=== PATIENT | female | born 1945 | race Caucasian/White ===

== ENCOUNTER 2022-04-17 15:43 | Inpatient (IN) | payer MEDICARE, OTHER ==
[~2022-04-17] VITALS: Ht 152.4 cm; Wt 45.5 kg
[2022-04-17 16:18] LABS: BASOPHILS ABSOLUTE AUTO 0.04 K/mm3 (0.00-0.23); BASOPHILS PERCENT AUTO 0 % (0-2); EOSINOPHILS ABSOLUTE AUTO 0.02 K/mm3 (0.00-0.68); EOSINOPHILS PERCENT AUTO 0 % (0-6); Hematocrit 41.4 % (33.0-51.0); Hemoglobin 13.9 g/dL (11.5-16.0); IMMATURE GRAN ABSOLUTE AUTO 0.02 K/mm3 (0.00-0.10); IMMATURE GRAN PERCENT AUTO 0 % (0-1); LYMPHOCYTES ABSOLUTE AUTO 2.54 K/mm3 (0.84-5.20); LYMPHOCYTES PERCENT AUTO 25 % (21-46); MONOCYTES ABSOLUTE AUTO 0.84 K/mm3 (0.16-1.47); MONOCYTES PERCENT AUTO 8 % (4-13); Mean Corpuscular HGB 30.8 pg (26.0-34.0); Mean Corpuscular HGB Conc 33.6 g/dL (31.5-36.5); Mean Corpuscular Volume 92 fL (80-100); Mean Platelet Volume 10.4 fL (9.1-12.4); NEUTROPHILS ABSOLUTE AUTO 6.77 K/mm3 (1.96-9.15); NEUTROPHILS PERCENT AUTO 66 % (41-73); Platelet Count 322 K/mm3 (150-400); RDW Coefficient Variation 13.3 % (11.7-14.2); RDW Standard Deviation 44.9 fL (35.1-46.3); Red Blood Cell Count 4.51 M/mm3 (3.80-5.20); White Blood Cell Count 10.23 K/mm3 (4.00-11.30)
[2022-04-17 16:49] LABS: Albumin, Blood 3.7 g/dL (3.4-5.0); Albumin/Globulin Ratio 1.1 (0.8-1.8); Bilirubin, Total 0.4 mg/dL (0.1-1.0); Bun/Creatinine Ratio 21.8 (12.0-20.0); Calcium, Blood 8.9 mg/dL (8.5-10.1); Creatinine, Blood 0.82 mg/dL (0.40-1.00); Globulin, Blood 3.3 g/dL (2.2-4.0); Potassium, Blood 3.4 mmol/L (3.5-5.5)
[2022-04-18 06:01] LABS: Bun/Creatinine Ratio 15.3 (12.0-20.0); Calcium, Blood 8.4 mg/dL (8.5-10.1); Creatinine, Blood 0.72 mg/dL (0.40-1.00); Potassium, Blood 3.9 mmol/L (3.5-5.5)
--- NOTE | 2022-04-18 06:03 | NUR ---
SHIFT SUMMARY PT A&OX3, HAD TROUBLE REMEMBERING WHAT TOWN WE'RE IN. PLEASANT AND COOPERATIVE WITH CARE. PT REQUIRED PAIN COVERAGE ONCE. NPO SINCE MIDNIGHT. CALL LIGHT WITHIN REACH.
--- NOTE | 2022-04-18 14:23 | NUR ---
04/18/22 1423 Paige Fabian SUGGS CATHETER IN SITU
--- NOTE | 2022-04-18 16:02 | NUR ---
SHIFT SUMMARY PT A&O2/FAMILY, VSS/3LNC. S/P L HIP NAILING, AQUACEL CDI, TEDS/PAS' ON. ARABELLA PO SIPS/CHIPS. IV RED INFUSING LR @ 125 MLS/HR. SUGGS PATENT & DRAINING YELLOW URINE, STAT LOCK ON, OFF FLOOR. PAIN TREATED W/25-50 FENT PRN. WILL REPORT TO ONCOMING NOC MARIZOL.
[2022-04-19 05:01] LABS: BASOPHILS ABSOLUTE AUTO 0.01 K/mm3 (0.00-0.23); BASOPHILS PERCENT AUTO 0 % (0-2); EOSINOPHILS PERCENT AUTO 0 % (0-6); Hematocrit 29.9 % (33.0-51.0); Hemoglobin 9.8 g/dL (11.5-16.0); IMMATURE GRAN ABSOLUTE AUTO 0.02 K/mm3 (0.00-0.10); IMMATURE GRAN PERCENT AUTO 0 % (0-1); LYMPHOCYTES ABSOLUTE AUTO 1.17 K/mm3 (0.84-5.20); LYMPHOCYTES PERCENT AUTO 14 % (21-46); MONOCYTES ABSOLUTE AUTO 1.24 K/mm3 (0.16-1.47); MONOCYTES PERCENT AUTO 14 % (4-13); Mean Corpuscular HGB 31.4 pg (26.0-34.0); Mean Corpuscular HGB Conc 32.8 g/dL (31.5-36.5); Mean Corpuscular Volume 96 fL (80-100); Mean Platelet Volume 10.6 fL (9.1-12.4); NEUTROPHILS ABSOLUTE AUTO 6.25 K/mm3 (1.96-9.15); NEUTROPHILS PERCENT AUTO 72 % (41-73); Platelet Count 208 K/mm3 (150-400); RDW Coefficient Variation 13.4 % (11.7-14.2); RDW Standard Deviation 47.9 fL (35.1-46.3); Red Blood Cell Count 3.12 M/mm3 (3.80-5.20); White Blood Cell Count 8.69 K/mm3 (4.00-11.30)
[2022-04-19 05:24] LABS: Calcium, Blood 8.1 mg/dL (8.5-10.1); Creatinine, Blood 0.75 mg/dL (0.40-1.00)
--- NOTE | 2022-04-19 05:31 | NUR ---
SHIFT SUMMARY PT A&OX 2-3, PLEASANT AND COOPERATIVE WITH CARE. MEDICATED FOR PAIN ONCE DURING SHIFT. TAKING SMALL SIPS OF WATER BUT COUGHS EACH TIME, WILL RELAY TO DAYSHIFT FOR POSSIBLE SWALLOW EVAL NEED. SUGGS IN PACE AND DRAINING TO GRAVITY, YELLOW/CLEAR. AQUACEL X2 C/D/I. CALL LIGHT WITHIN REACH.
--- NOTE | 2022-04-19 08:00 | NUR ---
PATIENT KEPT NPO TO HAVE SPEECH THERAPY EVAL D/T PATIENT COUGHING AND CHOKING ON WATER.
--- NOTE | 2022-04-19 17:41 | NUR ---
SHIFT SUMMARY POD 1 LEFT HIP GAMMA NAIL, X2 AQUACELS C/D/I, WBAT. PATIENT WORKED WITH PT & OT THIS SHIFT AND DID WELL, 1-2 P ASSIST TO CHAIR/BSC. SUGGS IN PLACE, DRAINING CLEAR YELLOW URINE. PATIENT A&O X2-3, SAYS THINGS OUT OF CONTEXT FREQUENTLY/RANDOMLY. PLEASANT & COOPERATIVE W/ STAFF. BED ALARM/TAB ALARM IN [place] FOR SAFETY. CALL LIGHT IN REACH, USED APPROPRIATLY THIS SHIFT. WILL REPORT TO IAM FONTANA AT 1900.
--- NOTE | 2022-04-20 04:58 | NUR ---
POD2 FOR A LEFT HIP NAILING. AQUACEL DRESSING ARE INTACT, SOME SHADOWING NOTED. SENSATION AND CIRCULATION REMAINS INTACT IN THE LLE. VSS. PT APPEARS TO HAVE IMMENSE PAIN WHEN MOVING HER LLE, MEDICATED WITH TYLENOL AND ULTRAM. THE PT SLEPT ON AND OFF T/O THE NIGHT DUE TO PAIN. REPOSITIONED TOLLERATED AND UTILIZED COLD THERAPY. PT HAS REMAINED NPO T/O THE NIGHT EXCEPT FOR CRUSHED MEDS IN [place]PL[place]CE. PLAN FOR SPEECH TO FOLLOW THIS PT AND PERFORM A BARRIUM SWALLOW TEST. CONFUSION NOTED T/O THE NIGHT, PT REDIRECTABLE AND PLEASENT TO INTERACT WITH. NO IMPULSIVENESS NOTED, BUT TAB ALARM REMAINED IN PLACE FOR SAFETY. PLAN FOR PT TO WORK WITH PT/OT AND D/C TO SNF OR HOME DEPENDING ON PT NEEDS. THE PATIENT IS CURRENTLY SLEEPING, IN NO DISTRESS. CALL LIGHT IN REACH, TAB ALARM ON.
[2022-04-20 14:27] LABS: SARS-Cov-2 (COVID-19) PCR, MMC NEGATIVE (NEGATIVE)
--- NOTE | 2022-04-20 16:22 | NUR ---
DISCHARGE PATIENT IS POD 2 FOR LEFT HIP GAMMA NAIL. X2 AQUACELS IN PLACE, ONE CHANGED THIS SHIFT D/T MODERATE DRAINAGE. PATIENT DOING WELL WITH PT & OT. PAIN MANAGED WELL PER EMAR. EATING & DRINNKING WELL W/ PUREE FOODS & NECTAR THICK LIQUIDS. REPORT CALLED TO RN AT [facility]. ESCORTED OUT VIA W/C WITH TRANSPORTER.
--- NOTE | 2022-04-20 17:06 | NUR ---
[facility] FROM [facility] RETURN[facility] CALL, REPORT GIVEN.
== END 2022-04-20 16:23 | DRG 482 ==
LOC: ER 15:43 → SURS 18:00
PROVIDERS: Internal Medicine; Nurse Practitioner Acute Care; Orthopaedic Surgery; Student in an Organized Health Care Education/Training Program; ADMIT Internal Medicine
PROC: 0QS734Z Reposition Left Upper Femur with Internal Fixation Device, Percutaneous Approach (ICD-10-PCS; principal; 2022-04-18 13:30)
DX: S72.145A Nondisplaced intertrochanteric fracture of left femur, initial encounter for closed fracture (principal); E03.9 Hypothyroidism, unspecified; K21.9 Gastro-esophageal reflux disease without esophagitis; M81.0 Age-related osteoporosis without current pathological fracture; W18.30XA Fall on same level, unspecified, initial encounter; F03.90 Unspecified dementia, unspecified severity, without behavioral disturbance, psychotic disturbance, mood disturbance, and anxiety; Z66 Do not resuscitate; Z20.822 Contact with and (suspected) exposure to COVID-19; R41.0 Disorientation, unspecified; E87.6 Hypokalemia
CPT/HCPCS: 36415; 73502; 73700; 80048; 80053; 82947; 84443; 84484; 85025; 92526; 92610; 93005; 93010; 97110; 97162; 97166; 97530; 97535; A9270; C1713; C1769; J0690; J1100; J1170; J2405; J2704; J2710; J2795; J3010; J7030; J7040; J7120; U0004

== ENCOUNTER 2024-03-11 16:44 | Inpatient (IN) | payer OTHER ==
[~2024-03-11] VITALS: Ht 149.9 cm; Wt 49.9 kg
[2024-03-11] MEDS ORDERED: Ondansetron HCl 2 MG / ML 2ML Vial IV PRN (18:20)
[2024-03-11] MEDS ORDERED: OxyCODONE HCL 5 MG TAB PO PRN (18:20)
[2024-03-11] MEDS ORDERED: FentaNYL Citrate 50 MCG/ML 2 ML Injection IV PRN (18:25)
[2024-03-11] MEDS ORDERED: Acetaminophen 325 MG TABLET PO PRN (18:25)
[2024-03-11 18:33] LABS: BASOPHILS ABSOLUTE AUTO 0.03 K/mm3 (0.00-0.23); BASOPHILS PERCENT AUTO 0 % (0-2); EOSINOPHILS ABSOLUTE AUTO 0.03 K/mm3 (0.00-0.68); EOSINOPHILS PERCENT AUTO 0 % (0-6); IMMATURE GRAN ABSOLUTE AUTO 0.04 K/mm3 (0.00-0.10); IMMATURE GRAN PERCENT AUTO 0 % (0-1); LYMPHOCYTES ABSOLUTE AUTO 1.16 K/mm3 (0.84-5.20); LYMPHOCYTES PERCENT AUTO 8 % (21-46); MONOCYTES ABSOLUTE AUTO 0.66 K/mm3 (0.16-1.47); MONOCYTES PERCENT AUTO 5 % (4-13); Mean Corpuscular HGB 30.8 pg (26.0-34.0); Mean Corpuscular HGB Conc 33.3 g/dL (31.5-36.5); Mean Corpuscular Volume 93 fL (80-100); Mean Platelet Volume 9.9 fL (9.1-12.4); NEUTROPHILS ABSOLUTE AUTO 11.86 K/mm3 (1.96-9.15); NEUTROPHILS PERCENT AUTO 86 % (41-73); Platelet Count 322 K/mm3 (150-400); RDW Coefficient Variation 12.5 % (11.7-14.2); RDW Standard Deviation 42.8 fL (35.1-46.3); Red Blood Cell Count 4.54 M/mm3 (3.80-5.20); White Blood Cell Count 13.78 K/mm3 (4.00-11.30)
[2024-03-11 19:06] LABS: Albumin, Blood 3.3 g/dL (3.4-5.0); Albumin/Globulin Ratio 0.9 (0.8-1.8); Bilirubin, Total 0.4 mg/dL (0.1-1.0); Bun/Creatinine Ratio 11.5 (12.0-20.0); Calcium, Blood 8.9 mg/dL (8.5-10.1); Creatinine, Blood 0.78 mg/dL (0.40-1.00); Globulin, Blood 3.6 g/dL (2.2-4.0); Potassium, Blood 4.2 mmol/L (3.5-5.5); Total Protein, Blood 6.9 g/dL (6.4-8.2)
[2024-03-11] MEDS ORDERED: LEVSOD75 PO (20:09)
[2024-03-11] MEDS ORDERED: ESCI10 PO (20:09)
[2024-03-11 20:38] VITALS: BP 129/70
[2024-03-11] MEDS ORDERED: Sennosides 8.6 MG Tab PO SCH (21:00)
[2024-03-11] MEDS ORDERED: FLU VACC TS2024-25(6MOS UP)/PF 45 MCG/0.5 ML SYRINGE IM ONE (21:00)
[2024-03-11 22:33] LABS: Source, Urine Foley catheter
[2024-03-11 22:36] LABS: Bilirubin, Urine Neg (Neg); Blood, Urine Neg (Neg); Glucose Qualitative, Urine Neg (Neg); Ketones, Urine Neg (Neg); Leukocyte Esterase, Urine Neg (Neg); Nitrite, Urine Neg (Neg); Protein, Urine Neg (Neg); Specific Gravity, Urine 1.015 (1.003-1.022); Urobilinogen, Urine NORM (Normal)
[2024-03-11 22:42] LABS: Appearance, Urine Clear (Clear); Color, Urine Yellow (P-Yellow)
[2024-03-11] MEDS ORDERED: NS 1,000 ML IV SCH (23:30)
[2024-03-12] VITALS (16 sets, daily range): BP systolic 113–164; BP diastolic 64–124
[2024-03-12 05:06] LABS: Hemoglobin 12.3 g/dL (11.5-16.0); Mean Corpuscular HGB 30.8 pg (26.0-34.0); Mean Corpuscular HGB Conc 33.2 g/dL (31.5-36.5); Mean Corpuscular Volume 93 fL (80-100); Mean Platelet Volume 10.4 fL (9.1-12.4); Platelet Count 314 K/mm3 (150-400); RDW Coefficient Variation 12.6 % (11.7-14.2); RDW Standard Deviation 43.1 fL (35.1-46.3); White Blood Cell Count 10.41 K/mm3 (4.00-11.30)
[2024-03-12 05:36] LABS: Calcium, Blood 8.4 mg/dL (8.5-10.1); Creatinine, Blood 0.67 mg/dL (0.40-1.00); Potassium, Blood 3.5 mmol/L (3.5-5.5)
--- NOTE | 2024-03-12 06:24 | NUR ---
NEW ADMIT/NARROW GAUGE OPERATOR SUMMARY PT HAD A GLF AT HOME; ADMIT FOR RIGHT HIP FX. PT TO HAVE SURGICAL INTERVENTION THIS MORNING. CONSULT CONTACTED BY CHARGE NURSE/Reyna MCKOY. PT ARRIVED TO ROOM. PLEASANT AND COOPERATIVE. PT REPORTING 8/10 PAIN. PT ALERT AND ORIENTED TO SELF. PT HX OF DEMENTIA; HOWEVER, PT PRESENTS DELAYED. PT NOT ABLE TO STATE THE DAY, YEAR, OR LOCATION. PT LIVES AT HOME WITH HER DAUGHTER. PT NPO AT MIDNIGHT. PAIN MEDS GIVEN PER AUG. PRIOR TO XFER FROM ED, PT ATTEMPTED TO VOID ON BEDPAN; PT VOIDED 50 ML. ONCE ON MED FLOOR, PT UNABLE TO VOID ON BEDPAN; POST VOID BLADDER SCAN WAS 344. CALL TO HOSPITALIST--NEW ORDER FOR SUGGS PT IS SCHEDULED FOR SURGERY TOMORROW. NO FAMILY AT BEDSIDE. PT UNABLE TO VERIFY CURRENT MEDICATIONS; PT POOR HISTORIAN FOR MEDICAL HX.
[2024-03-12] MEDS ORDERED: CeFAZolin Sodium 2,000 MG in NS 100 ML IV SCH (07:50)
[2024-03-12] MEDS ORDERED: Tranexamic Acid 100 ML IV SCH (07:50)
[2024-03-12] MEDS ORDERED: propofoL 20 ML IV ONE (15:16)
--- NOTE | 2024-03-12 15:19 | NUR ---
History, Chart, Medications and Allergies reviewed before start of procedure. Pre-Op teaching done. Pt verbalizes understanding. Patient confirms NPO status and agrees with scheduled surgery. PT LEFT ALL BELONGINGS IN MED FLOOR RM.
[2024-03-12] MEDS ORDERED: Lactated Ringer's 1,000 ML IV SCH (15:25)
[2024-03-12] MEDS ORDERED: FentaNYL Citrate 50 MCG/ML 2 ML Injection ONE (15:52)
[2024-03-12] MEDS ORDERED: Magnesium Hydroxide Conc 10 ML UDC PO PRN (17:25)
[2024-03-12] MEDS ORDERED: D5W-1/2NS KCl 20mEq 1,000 ML IV SCH (17:25)
[2024-03-12] MEDS ORDERED: Bisacodyl 10 MG Supp PR PRN (17:25)
[2024-03-12] MEDS ORDERED: Ondansetron 4 MG TAB PO PRN (17:25)
[2024-03-12] MEDS ORDERED: Naloxone HCl 0.4MG / ML 1ML Vial IV PRN (17:25)
[2024-03-12] MEDS ORDERED: Acetaminophen 325 MG TABLET PO PRN (17:25)
[2024-03-12] MEDS ORDERED: HYDROmorphone HCl/Pf 1MG SYR IV PRN (17:30)
[2024-03-12] MEDS ORDERED: FLU VACC TS2024-25(6MOS UP)/PF 45 MCG/0.5 ML SYRINGE IM SCH (17:30)
[2024-03-12] MEDS ORDERED: TraMADol HCl 50 MG Tab PO PRN (17:30)
[2024-03-12] MEDS ORDERED: Ketorolac Tromethamine 15mg Vial IV PRN (17:35)
--- NOTE | 2024-03-12 18:03 | NUR ---
PT ARRIVED TO UNIT FROM PACU VSS. PT GRIMACING IN PAIN, RATED 5/10 ON FLACC SCALE. MEDICATED PER ORDERS WITH TYLENOL. PT ORIENTED TO SELF. PRESSURE DRESSING X2 TO R HIP CDI. BED ALARM ON, CALL LIGHT IN REACH.
--- NOTE | 2024-03-12 18:15 | NUR ---
SHIFT SUMMARY PT REMAINS A&O TO SELF ONLY ABLE TO STATE NAME AND DATE OF . PT NPO STATUS AND WAS TAKEN TO SURGERY THIS SHIFT AROUND 1500. PT WAS TRANSFERED FROM SURGERY TO ROOM 212 THIS SHIFT. NURSE REPORT GIVEN TO BEAR FONTANA.
[2024-03-12] MEDS ORDERED: Docusate Sodium 100 MG Cap PO SCH (21:00)
--- NOTE | 2024-03-13 03:58 | NUR ---
SHIFT SUMMARY POD 1 R HIP PINNING. NO ACUTE CHANGES OVERNIGHT. VSS, PT REMOVES NC- O2 SAT >90% ON RA. A&O x1, BASELINE ORITENTED TO SELF. FOLLOWS COMMANDS, COOPERATIVE WITH CARE. ENC PO INTAKE, PT SWALLOWS PILLS WHOLE WITH WATER. IV FLUIDS INFUSING PER EMAR. SUGGS DRAINING YELLOW URINE. PT EDUCATED ON NEED TO KEEP SUGGS IN PLACE. BED ALARM IN USE, NO AMB OVERNIGHT, TTWB ON RLE. PT MEDICATED FOR PAIN PER EMAR, FLACC SCALE USED; PT ABLE TO MINIMALLY VERBALIZE UNDERSTANDING OF PAIN. ANTICIPATED TO WORK WITH PHYSCIAL THERAPY TODAY. GAUZE/ PRESSURE TAPE DRESSING x2 C/D/I. PT RESTING IN BED, CALL LIGHT IN REACH, WILL REPORT TO DAY RN.
[2024-03-13 04:04] VITALS: BP 119/71
[2024-03-13 05:09] LABS: BASOPHILS ABSOLUTE AUTO 0.03 K/mm3 (0.00-0.23); BASOPHILS PERCENT AUTO 0 % (0-2); EOSINOPHILS ABSOLUTE AUTO 0.15 K/mm3 (0.00-0.68); EOSINOPHILS PERCENT AUTO 1 % (0-6); Hematocrit 33.6 % (33.0-51.0); Hemoglobin 10.8 g/dL (11.5-16.0); IMMATURE GRAN ABSOLUTE AUTO 0.03 K/mm3 (0.00-0.10); IMMATURE GRAN PERCENT AUTO 0 % (0-1); LYMPHOCYTES ABSOLUTE AUTO 1.83 K/mm3 (0.84-5.20); LYMPHOCYTES PERCENT AUTO 17 % (21-46); MONOCYTES ABSOLUTE AUTO 1.19 K/mm3 (0.16-1.47); MONOCYTES PERCENT AUTO 11 % (4-13); Mean Corpuscular HGB 30.4 pg (26.0-34.0); Mean Corpuscular HGB Conc 32.1 g/dL (31.5-36.5); Mean Corpuscular Volume 95 fL (80-100); Mean Platelet Volume 10.4 fL (9.1-12.4); NEUTROPHILS ABSOLUTE AUTO 7.31 K/mm3 (1.96-9.15); NEUTROPHILS PERCENT AUTO 69 % (41-73); Platelet Count 249 K/mm3 (150-400); RDW Coefficient Variation 12.4 % (11.7-14.2); RDW Standard Deviation 43.1 fL (35.1-46.3); Red Blood Cell Count 3.55 M/mm3 (3.80-5.20); White Blood Cell Count 10.54 K/mm3 (4.00-11.30)
[2024-03-13 05:43] LABS: Bun/Creatinine Ratio 12.2 (12.0-20.0); Creatinine, Blood 0.57 mg/dL (0.40-1.00); Magnesium, Blood 1.9 mg/dL (1.6-2.4); Potassium, Blood 3.7 mmol/L (3.5-5.5)
[2024-03-13] MEDS ORDERED: Cefazolin 2000MG/Dextrose,ISO 50 ML IV SCH (05:45)
[2024-03-13] MEDS ORDERED: Levothyroxine Sodium 0.075 MG Tab PO SCH (06:00)
[2024-03-13] MEDS ORDERED: CeFAZolin Sodium 2,000 MG in NS 100 ML IV SCH (06:00)
[2024-03-13 07:26] VITALS: BP 134/70
[2024-03-13] MEDS ORDERED: Enoxaparin 30 MG/0.3 ML SYR SC SCH (09:00)
[2024-03-13] MEDS ORDERED: Citalopram Hydrobromide 20 MG Tab PO SCH (09:00)
[2024-03-13 15:53] VITALS: BP 113/73
--- NOTE | 2024-03-13 18:41 | NUR ---
SHIFT SUMMARY WORKED w/ PT & OT TODAY. PLEASANTLY CONFUSED T/O SHIFT. USES CALL LIGHT WELL. PAIN CONTROLLED BY ALTERNATING TYLENOL & TRAMADOL. IVF STOPPED. PT TAKING IN PO VERY WELL & MAKING A LOT OF URINE. HAS SPENT DAY UP IN CHAIR & DECLINES BACK TO BED SHE PREFERS CHAIR.
[2024-03-13 19:09] VITALS: BP 117/74
[2024-03-14 04:47] VITALS: BP 127/68
[2024-03-14 05:07] LABS: BASOPHILS ABSOLUTE AUTO 0.03 K/mm3 (0.00-0.23); BASOPHILS PERCENT AUTO 0 % (0-2); EOSINOPHILS ABSOLUTE AUTO 0.23 K/mm3 (0.00-0.68); EOSINOPHILS PERCENT AUTO 2 % (0-6); Hematocrit 30.3 % (33.0-51.0); Hemoglobin 10.2 g/dL (11.5-16.0); IMMATURE GRAN ABSOLUTE AUTO 0.02 K/mm3 (0.00-0.10); IMMATURE GRAN PERCENT AUTO 0 % (0-1); LYMPHOCYTES ABSOLUTE AUTO 1.52 K/mm3 (0.84-5.20); LYMPHOCYTES PERCENT AUTO 16 % (21-46); MONOCYTES ABSOLUTE AUTO 1.08 K/mm3 (0.16-1.47); MONOCYTES PERCENT AUTO 11 % (4-13); Mean Corpuscular HGB 30.8 pg (26.0-34.0); Mean Corpuscular HGB Conc 33.7 g/dL (31.5-36.5); Mean Corpuscular Volume 92 fL (80-100); Mean Platelet Volume 10.3 fL (9.1-12.4); NEUTROPHILS ABSOLUTE AUTO 6.84 K/mm3 (1.96-9.15); NEUTROPHILS PERCENT AUTO 70 % (41-73); Platelet Count 244 K/mm3 (150-400); RDW Coefficient Variation 12.2 % (11.7-14.2); RDW Standard Deviation 41.1 fL (35.1-46.3); Red Blood Cell Count 3.31 M/mm3 (3.80-5.20); White Blood Cell Count 9.72 K/mm3 (4.00-11.30)
[2024-03-14 05:46] LABS: Bun/Creatinine Ratio 7.8 (12.0-20.0); Calcium, Blood 8.2 mg/dL (8.5-10.1); Creatinine, Blood 0.64 mg/dL (0.40-1.00); Potassium, Blood 3.4 mmol/L (3.5-5.5)
--- NOTE | 2024-03-14 07:24 | NUR ---
SHIFT SUMMARY POD 2 R HIP PINNING. NO ACUTE CHANGES OVERNIGHT. VSS. A&O x1, BASELINE ORITENTED TO SELF. FOLLOWS COMMANDS, COOPERATIVE WITH CARE. ENC PO INTAKE, PT SWALLOWS PILLS WHOLE WITH WATER. SUGGS D/C'd THIS AM, ATTENDS IN PLACE. BED ALARM IN USE, NO AMB OVERNIGHT, TTWB ON RLE. PT MEDICATED FOR PAIN PER EMAR; PT ABLE TO MINIMALLY VERBALIZE UNDERSTANDING OF PAIN. ANTICIPATED TO WORK WITH PHYSCIAL THERAPY TODAY. AQUACEL DRESSING x2 C/D/I. PT RESTING IN BED, CALL LIGHT IN REACH, WILL REPORT TO DAY RN.
[2024-03-14] MEDS ORDERED: Potassium Chloride 20 MEQ TabCR PO ONE (08:00)
[2024-03-14 08:27] VITALS: BP 153/70
--- NOTE | 2024-03-14 12:08 | NUR ---
ASSUMED CARE OF PT AT 0700 THIS AM. SEE DOCUMENTED VS AND ASSESSMENT. DRESSINGS TO R HIP WITH SHADOW OF DRAINAGE. PT REPORTS PAIN IS WELL CONTROLLED WITH TYLENOL. PT RESTING IN BED WITH DTR AT BEDSIDE THIS AM. PT IS OOB TO RECLINER CHAIR THIS AFTERNOON FOR LUNCH, CHAIR ALARM IN PLACE FOR SAFETY. PT STATES TO THIS RN THAT SHE HAS NO NEEDS AT THIS TIME, PAIN IS WELL CONTROLLED. AWAITING PLACEMENT AT SNF. CALL LIGHT IN REACH, WILL CONTINUE TO MONITOR.
[2024-03-14 14:18] VITALS: BP 119/77
[2024-03-14 19:07] VITALS: BP 133/71
--- NOTE | 2024-03-14 19:17 | NUR ---
NO ACUTE CHANGES SINCE LAST NOTE. PT OOB TO CHAIR MOST OF THE DAY. NO COMPLAINTS OF PAIN. NO NEEDS IDENTIFIED. PT ABLE TO USE CALL LIGHT FOR NEEDS. REMAINES A&OX2. [place]. REPORT GIVEN TO FARTUN ARTEAGA RN.
[2024-03-15 03:38] VITALS: BP 144/80
[2024-03-15 04:53] LABS: BASOPHILS ABSOLUTE AUTO 0.04 K/mm3 (0.00-0.23); BASOPHILS PERCENT AUTO 0 % (0-2); EOSINOPHILS ABSOLUTE AUTO 0.26 K/mm3 (0.00-0.68); EOSINOPHILS PERCENT AUTO 2 % (0-6); Hematocrit 32.2 % (33.0-51.0); Hemoglobin 10.7 g/dL (11.5-16.0); IMMATURE GRAN ABSOLUTE AUTO 0.03 K/mm3 (0.00-0.10); IMMATURE GRAN PERCENT AUTO 0 % (0-1); LYMPHOCYTES PERCENT AUTO 19 % (21-46); MONOCYTES ABSOLUTE AUTO 0.93 K/mm3 (0.16-1.47); MONOCYTES PERCENT AUTO 8 % (4-13); Mean Corpuscular HGB 30.5 pg (26.0-34.0); Mean Corpuscular HGB Conc 33.2 g/dL (31.5-36.5); Mean Corpuscular Volume 92 fL (80-100); Mean Platelet Volume 10.6 fL (9.1-12.4); NEUTROPHILS ABSOLUTE AUTO 7.69 K/mm3 (1.96-9.15); NEUTROPHILS PERCENT AUTO 70 % (41-73); Platelet Count 294 K/mm3 (150-400); RDW Coefficient Variation 12.3 % (11.7-14.2); RDW Standard Deviation 41.3 fL (35.1-46.3); Red Blood Cell Count 3.51 M/mm3 (3.80-5.20); White Blood Cell Count 11.05 K/mm3 (4.00-11.30)
[2024-03-15 05:30] LABS: Bun/Creatinine Ratio 8.8 (12.0-20.0); Calcium, Blood 8.9 mg/dL (8.5-10.1); Creatinine, Blood 0.57 mg/dL (0.40-1.00); Potassium, Blood 3.8 mmol/L (3.5-5.5)
--- NOTE | 2024-03-15 05:35 | NUR ---
NOC SUMMARY- PT HAS HAD NO NEW ISSUES. PT PAIN MANAGED WELL. PT ABLE TO SLEEP OFF AND ON. PT HAS BEEN TURNING SELF IN BED. PT HAS BEEN UP TO VOID W/ BSC. PT REMAINS PLESANTLY CONFUSED. PT ABLE TO FOLLOW DIRECTIONS AT TIMES. DRESSING IS C/D/I. CALL LIGHT IN REACH AND BED ALARM ON.
[2024-03-15 07:54] VITALS: BP 143/60
[2024-03-15] MEDS ORDERED: ACET325 PO (09:26)
[2024-03-15] MEDS ORDERED: COLACE100 MG PO (09:27)
[2024-03-15] MEDS ORDERED: ENOX30I SC (09:27)
[2024-03-15] MEDS ORDERED: BISA10S PR (09:27)
[2024-03-15] MEDS ORDERED: ONDA4 PO (09:28)
[2024-03-15] MEDS ORDERED: TRAM50 PO (09:29)
[2024-03-15 10:43] LABS: SARS-Cov-2 (COVID-19) PCR, MMC NEGATIVE (NEGATIVE)
--- NOTE | 2024-03-15 13:14 | NUR ---
TRANSFER SUMMARY PT TRANSFERRED TO SNF. TELEPHONE REPORT GIVEN TO RN. A&O x1-2, ORITENTED TO SELF/FAMILY. TOLERATING ORALS. VOIDING, ATTENDS IN USE R/T PRN INCONT. BM x1 TODAY. S/P R HIP PINNING. AQUACEL x2 C/D/I c SMALL SHADOWING. TTWB ON RLE. PT AMBULATES STAND/PIVOT TO CHAIR/BSC. COOPERATIVE WITH CARE. TRANSPORT SERVICE ARRIVED @ 1300. TRANSPORTED TO SNF VIA WHEELCHAIR. IV REMOVED. DISCHARGE INSTRUCTION GIVEN. ALL PERSONAL BELONGINGS WITH PATIENT.
== END 2024-03-15 12:59 | DRG 481 ==
LOC: ER 16:44 → MEDS 18:18 → SURS 18:18 → MEDS 20:27 → SURS 03-12 17:29
PROVIDERS: Hospitalist; Internal Medicine; Nurse Practitioner Acute Care; Orthopaedic Surgery; Physician Assistant; ADMIT Internal Medicine
PROC: 0QS634Z Reposition Right Upper Femur with Internal Fixation Device, Percutaneous Approach (ICD-10-PCS; principal; 2024-03-12 15:00)
DX: S72.001A Fracture of unspecified part of neck of right femur, initial encounter for closed fracture (principal); F03.93 Unspecified dementia, unspecified severity, with mood disturbance; Z66 Do not resuscitate; E03.9 Hypothyroidism, unspecified; K21.9 Gastro-esophageal reflux disease without esophagitis; M81.0 Age-related osteoporosis without current pathological fracture; Z88.1 Allergy status to other antibiotic agents; Z88.8 Allergy status to other drugs, medicaments and biological substances; W18.09XA Striking against other object with subsequent fall, initial encounter; Y92.009 Unspecified place in unspecified non-institutional (private) residence as the place of occurrence of the external cause
CPT/HCPCS: 36415; 73502; 73700; 76377; 80048; 80053; 81003; 83735; 85025; 85027; 94762; 97162; 97165; 97530; 97535; 99284-25; A9270; C1713; C1769; J0690; J1650; J2704; J3010; J7030; J7120; U0002